=== PATIENT | female | born 1945 | race Caucasian/White ===

== ENCOUNTER 2018-06-29 20:42 | Emergency (ER) | payer MEDICARE ==
[~2018-06-29] VITALS: Ht 160 cm; Wt 96.4 kg
[~2018-06-29 20:42] MED LIST: ACET-2144 PO; ASPI-1265 PO; ATOR10TA87 PO; CHOL100024 PO; COU1T PO; DIPH25TA62 PO; FENO48TA4 PO; FERR325T28 PO; FURO-150 PO; GABA-532 PO; GLUC-133 PO; INSU100C4 SQ; ISOS60TA4 PO; LANTUS SUBCUT; LINA5TAB4 PO; MIDO5TAB PO; MULT-342 PO; NITR0.4T48 SL; OMEG1CAP2 PO; POLY17PO10 PO; SERT100T10 PO; TRAM50TA2 PO
[2018-06-29 22:34] LABS: CLARITY,URINE CLOUDY (Clear); COLOR,URINE YELLOW (Yellow); GLUCOSE, URINE NEGATIVE (Neg); KETONES,URINE TRACE mg/dl (Neg); LEUKOCYTE ESTERASE ,URINE LARGE (Neg); NITRITES, URINE NEGATIVE (Neg); OCCULT BLOOD,URINE SMALL (Neg); PROTEIN,URINE TRACE mg/dl (Neg); UROBILINOGEN,URINE 0.2 E.U/dL (0.2-1.0)
[2018-06-29 22:39] LABS: BASOPHILS % (AUTO) 0.3 % (0-1); EOSINOPHILS # (AUTO) 0.2 X10'3 (0-0.9); EOSINOPHILS % (AUTO) 1.9 % (0-6); HEMATOCRIT 37.2 % (35.0-45.0); HEMOGLOBIN 12.9 g/dl (12.0-16.0); LYMPHOCYTES # (AUTO) 1.4 X10'3 (1.1-4.8); LYMPHOCYTES % (AUTO) 15.6 % (21-51); MEAN CORPUSCULAR HEMOGLOBIN 29.1 PG (27.0-31.0); MEAN CORPUSCULAR HGB CONC 34.7 % (33.0-36.5); MEAN CORPUSCULAR VOLUME 83.9 FL (78-98); MEAN PLATELET VOLUME 8.1 FL (7.4-10.4); MONOCYTES # (AUTO) 0.4 X10'3 (0-0.9); MONOCYTES % (AUTO) 4.9 % (2-12); NEUTROPHILS % (AUTO) 77.3 % (42-75); PLATELET COUNT 304 X10'3 (140-440); RED BLOOD COUNT 4.44 X10'6 (4.20-5.60); RED CELL DISTRIBUTION WIDTH 13.4 % (11.5-14.5); WHITE BLOOD COUNT 9.1 X10'3 (4.5-11.0)
[2018-06-29 23:02] LABS: ALANINE AMINOTRANSFERASE 21 U/L (12-78); ALBUMIN 4.1 G/DL (3.4-5.0); ALBUMIN/GLOBULIN RATIO 1.1 (1.1-1.5); ALKALINE PHOSPHATASE 123 IU/L (46-116); ANION GAP 11 (8-16); ASPARTATE AMINO TRANSFERASE 17 U/L (10-37); BILIRUBIN,TOTAL 0.7 MG/DL (0.1-1.0); BLOOD UREA NITROGEN 38 MG/DL (7-18); BUN/CREATININE RATIO 18.7 (6.6-38.0); CALCIUM 9.8 MG/DL (8.5-10.1); CHLORIDE 99 MMOL/L (99-107); CREATININE 2.03 MG/DL (0.40-0.90); GLUCOSE 111 MG/DL (70-104); LIPASE 245 U/L (73-393); POTASSIUM 3.6 MMOL/L (3.5-5.1); SODIUM 137 MMOL/L (135-145); TOTAL PROTEIN 7.9 G/DL (6.4-8.2); eGFR 24 ML/MIN
[2018-06-29 23:19] LABS: UA COLLECTION TYPE STRAIGHT CATH
[2018-06-29 23:20] LABS: BACTERIA,URINE 4+ /HPF (Neg); SQUAMOUS EPITHELIAL CELL,UR MODERATE /LPF (FEW); WBC,URINE TNTC /HPF (0-4)
[2018-06-29] MEDS ORDERED: CEPH-572 PO (23:26)
[2018-06-29] MEDS ORDERED: HYDROcodone/acetaminophen 5mg/325mg tablet PO ONE (23:30)
[2018-06-29] MEDS ORDERED: cephalexin 250mg capsule PO ONE (23:30)
[2018-06-30 00:01] VITALS: BP 139/74
== END 2018-06-30 00:02 | disposition home or self-care (01) ==
LOC: ER 20:42
DX: N39.0 Urinary tract infection, site not specified (principal); I25.10 Atherosclerotic heart disease of native coronary artery without angina pectoris; I12.9 Hypertensive chronic kidney disease with stage 1 through stage 4 chronic kidney disease, or unspecified chronic kidney disease; E11.22 Type 2 diabetes mellitus with diabetic chronic kidney disease; N18.9 Chronic kidney disease, unspecified; Z90.710 Acquired absence of both cervix and uterus; Z79.4 Long term (current) use of insulin; Z79.01 Long term (current) use of anticoagulants; Z79.82 Long term (current) use of aspirin; Z88.0 Allergy status to penicillin; Z88.8 Allergy status to other drugs, medicaments and biological substances
CPT/HCPCS: 36415; 80053; 81001; 83690; 85025; 87077; 87088; 87186; 99284

== ENCOUNTER 2018-08-29 11:36 | Day surgery (SDC) | payer MEDICARE ==
[~2018-08-29] VITALS: Ht 160 cm; Wt 100.4 kg
[2018-08-29] MEDS ORDERED: normal saline 1000ml 1,000 ML IV SCH (12:20)
[2018-08-29 13:32] LABS: BASOPHILS % (AUTO) 0.1 % (0-1); EOSINOPHILS # (AUTO) 0.1 X10'3 (0-0.9); EOSINOPHILS % (AUTO) 2.8 % (0-6); LYMPHOCYTES # (AUTO) 0.8 X10'3 (1.1-4.8); MEAN CORPUSCULAR HGB CONC 33.4 % (33.0-36.5); MEAN CORPUSCULAR VOLUME 86.8 FL (78-98); MEAN PLATELET VOLUME 7.9 FL (7.4-10.4); MONOCYTES # (AUTO) 0.2 X10'3 (0-0.9); MONOCYTES % (AUTO) 4.9 % (2-12); NEUTROPHILS # (AUTO) 3.1 X10'3 (1.8-7.7); NEUTROPHILS % (AUTO) 73.2 % (42-75); PRE OP HEMATOCRIT 36.5 % (35.0-45.0); PRE OP HEMOGLOBIN 12.2 g/dL (12.0-16.0); PRE OP PLATELET COUNT 275 X10'3 (140-440); RED CELL DISTRIBUTION WIDTH 14.7 % (11.5-14.5)
[2018-08-29 13:44] LABS: INR 1.2 INR; PROTHROMBIN TIME 11.6 SECONDS (9.0-12.0)
[2018-08-29 13:47] LABS: ALBUMIN 3.7 G/DL (3.4-5.0); ANION GAP 10 (8-16); BLOOD UREA NITROGEN 31 MG/DL (7-18); BUN/CREATININE RATIO 18.8 (6.6-38.0); CALCIUM 9.4 MG/DL (8.5-10.1); CHLORIDE 103 MMOL/L (99-107); CREATININE 1.65 MG/DL (0.40-0.90); GLUCOSE 188 MG/DL (70-104); SODIUM 142 MMOL/L (135-145); TOTAL CARBON DIOXIDE 29.1 MMOL/L (24-32); eGFR 30 ML/MIN
[2018-08-29 14:47] VITALS: BP 131/66
[2018-08-29] MEDS ORDERED: fentaNYL/PF 50MCG/1 ML 2ML syringe ONE (15:18)
[2018-08-29] MEDS ORDERED: LIDOcaine 1% (10mg/ml) 2ml vial ONE (15:18)
[2018-08-29] MEDS ORDERED: midazolam 2 mg/2 ml injection ONE (15:18)
[2018-08-29 16:00] VITALS: BP 139/39
[2018-08-29 16:15] VITALS: BP 132/62
[2018-08-29 16:30] VITALS: BP 130/61
[2018-08-29 16:45] VITALS: BP 124/55
[2018-08-29 17:00] VITALS: BP 124/57
== END 2018-08-29 17:20 | disposition home or self-care (01) ==
LOC: SSTAY O 11:36
PROVIDERS: ATTEND Radiology Vascular & Interventional Radiology
DX: Z45.89 Encounter for adjustment and management of other implanted devices (principal); I48.91 Unspecified atrial fibrillation; E78.5 Hyperlipidemia, unspecified; I10 Essential (primary) hypertension; E11.9 Type 2 diabetes mellitus without complications; I25.10 Atherosclerotic heart disease of native coronary artery without angina pectoris; Z87.440 Personal history of urinary (tract) infections; Z86.73 Personal history of transient ischemic attack (TIA), and cerebral infarction without residual deficits; Z85.41 Personal history of malignant neoplasm of cervix uteri; Z90.710 Acquired absence of both cervix and uterus; Z90.49 Acquired absence of other specified parts of digestive tract; Z88.8 Allergy status to other drugs, medicaments and biological substances; Z79.899 Other long term (current) drug therapy; Z96.652 Presence of left artificial knee joint; Z98.890 Other specified postprocedural states
CPT/HCPCS: 36415; 37193; 76937; 80048; 82948; 85025; 85610; 99152; 99153; A6219; C1769; C1894; J2250; J3010; J3490; J7030